=== PATIENT | male | born 1950 | race Caucasian/White ===

== ENCOUNTER 2017-03-25 12:16 | Emergency (ER) | payer MEDICARE, OTHER ==
[~2017-03-25 12:16] MED LIST: ADVIL LIQUI-GE200 MG PO; ALPRAZOLAM0.25 MG PO; AMBIEN10 MG PO; CENTRUM SILVER1 EAC3 PO; DURAGESIC25 MCG/PAT TD; FISH OIL CONCEN1 SG2 PO; FLOMAX PO; GOOD NEIGHBOR200 M3 PO; POTASSIUM CITR10 MEQ PO; ZESTORETIC 10-1 EACH PO; ZOCOR40 M1 PO
[2017-03-25 17:03] VITALS: BP 164/72
== END 2017-03-25 17:22 | disposition home or self-care (01) ==
LOC: ED 12:16
DX: R07.89 Other chest pain (principal); K21.9 Gastro-esophageal reflux disease without esophagitis

== ENCOUNTER → 2017-11-27 | Outpatient (CLI) | payer MEDICARE ==
[2017-11-27 09:43] LABS: ALBUMIN 4.1 g/dL (3.5-5.0); BUN/CREATININE RATIO 26.8 (6.0-26.0); CALCIUM 9.1 mg/dL (8.4-10.2); POTASSIUM 4.4 mmol/L (3.6-5.0); TOTAL BILIRUBIN 0.9 mg/dL (0.2-1.3); TOTAL PROTEIN 7.1 g/dL (6.3-8.2)
[2017-11-27 09:52] LABS: BASO # 0.1 (0.02-0.10); EOS # 0.3 (0.04-0.40); EOS % 3.3 % (0.0-4.0); HEMATOCRIT 46.6 % (42.0-52.0); LYMPH# 2.5 (1.50-4.00); MEAN CELL VOLUME 95 fl (78-100); MEAN CORPUSCULAR HEMOGLOBIN 33 pg (27-31); MEAN CORPUSCULAR HGB CONC 34 g/dL (33-37); MEAN PLATELET VOLUME 10.1 fl (7.4-10.4); MONO # 1.1 (0.20-0.80); NEU # 5.2 (1.40-6.50); PLATELET COUNT 269 K/mm3 (130-400); RED BLOOD COUNT 4.93 M/mm3 (4.20-5.60); RED CELL DISTRIBUTION WIDTH 14.8 % (11.5-14.5); WHITE BLOOD COUNT 9.2 K/mm3 (4.8-10.8)
[2017-11-27 23:42] LABS: TESTOSTERONE 611 ng/dL (221-716)
== END ==
LOC: LAB 09:08
PROVIDERS: Nurse Practitioner Family
DX: E78.2 Mixed hyperlipidemia (principal); Z12.5 Encounter for screening for malignant neoplasm of prostate; I10 Essential (primary) hypertension; N52.9 Male erectile dysfunction, unspecified; K40.90 Unilateral inguinal hernia, without obstruction or gangrene, not specified as recurrent

== ENCOUNTER → 2017-12-03 | Outpatient (CLI) | payer MEDICARE ==
[2017-12-04 13:29] LABS: TESTOSTERONE 745 ng/dL (221-716)
[2017-12-06 00:54] LABS: T3 TOTAL 132 ng/dL (87-178)
== END ==
LOC: LAB 08:15
PROVIDERS: Nurse Practitioner Family
DX: Z12.5 Encounter for screening for malignant neoplasm of prostate (principal); E78.2 Mixed hyperlipidemia; I10 Essential (primary) hypertension; N52.9 Male erectile dysfunction, unspecified; K40.90 Unilateral inguinal hernia, without obstruction or gangrene, not specified as recurrent; R79.89 Other specified abnormal findings of blood chemistry

== ENCOUNTER → 2019-10-21 | Outpatient (CLI) | payer MEDICARE ==
[2019-10-21 10:17] LABS: EOS # 0.1 (0.04-0.40); EOS % 2.1 % (0.0-4.0); HEMATOCRIT 43.9 % (42.0-52.0); HEMOGLOBIN 14.6 g/dL (13.5-18.0); LYMPH# 1.3 (1.50-4.00); MEAN CELL VOLUME 98 fl (78-100); MEAN CORPUSCULAR HEMOGLOBIN 33 pg (27-31); MEAN CORPUSCULAR HGB CONC 33 g/dL (33-37); MEAN PLATELET VOLUME 8.9 fl (7.4-10.4); MONO # 0.6 (0.20-0.80); NEU # 3.2 (1.40-6.50); PLATELET COUNT 211 K/mm3 (130-400); RED BLOOD COUNT 4.49 M/mm3 (4.20-5.60); RED CELL DISTRIBUTION WIDTH 12.9 % (11.5-14.5); WHITE BLOOD COUNT 5.3 K/mm3 (4.8-10.8)
[2019-10-21 10:26] LABS: ALBUMIN 4.4 g/dL (3.4-4.8)
[2019-10-21 10:27] LABS: POTASSIUM 4.3 mmol/L (3.5-5.1)
[2019-10-21 10:28] LABS: CALCIUM 9.5 mg/dL (8.3-10.5)
[2019-10-21 10:29] LABS: TOTAL PROTEIN 7.3 g/dL (6.2-8.1)
[2019-10-21 10:31] LABS: TOTAL BILIRUBIN 0.7 mg/dL (0.2-1.2)
== END ==
LOC: LAB 10:01
PROVIDERS: Physician Assistant
DX: C34.90 Malignant neoplasm of unspecified part of unspecified bronchus or lung (principal); J44.9 Chronic obstructive pulmonary disease, unspecified; H83.03 Labyrinthitis, bilateral

== ENCOUNTER 2019-10-30 11:57 | Emergency (ER) | payer MEDICARE ==
[~2019-10-30] VITALS: Ht 175.3 cm; Wt 69.1 kg
[2019-10-30 12:52] LABS: EOS # 0.1 (0.04-0.40); HEMATOCRIT 42.8 % (42.0-52.0); HEMOGLOBIN 14.5 g/dL (13.5-18.0); LYMPH# 1.6 (1.50-4.00); MEAN CELL VOLUME 96 fl (78-100); MEAN CORPUSCULAR HEMOGLOBIN 32 pg (27-31); MEAN CORPUSCULAR HGB CONC 34 g/dL (33-37); MEAN PLATELET VOLUME 9.3 fl (7.4-10.4); MONO # 0.7 (0.20-0.80); NEU # 3.8 (1.40-6.50); PLATELET COUNT 205 K/mm3 (130-400); RED BLOOD COUNT 4.48 M/mm3 (4.20-5.60); WHITE BLOOD COUNT 6.4 K/mm3 (4.8-10.8)
[2019-10-30 12:55] LABS: ALBUMIN 4.2 g/dL (3.4-4.8); POTASSIUM 3.8 mmol/L (3.5-5.1); SODIUM 141 mmol/L (136-145)
[2019-10-30 12:57] LABS: CALCIUM 9.5 mg/dL (8.3-10.5)
[2019-10-30 12:58] LABS: GLUCOSE 90 mg/dL (75-110); TOTAL PROTEIN 6.9 g/dL (6.2-8.1)
[2019-10-30 12:59] LABS: CARBON DIOXIDE 22 mmol/L (23-31)
[2019-10-30 13:00] LABS: TOTAL BILIRUBIN 0.6 mg/dL (0.2-1.2)
[2019-10-30 13:03] LABS: AST-SGOT 15 U/L (5-34)
[2019-10-30 13:04] LABS: ALT/SGPT 18 U/L (0-55)
[2019-10-30 13:12] LABS: TROPONIN-I < 0.03 ng/mL (<0.030)
[2019-10-30 13:16] LABS: URINE APPEARANCE CLEAR; URINE BILIRUBIN NEGATIVE (NEGATIVE); URINE BLOOD NEGATIVE (NEGATIVE); URINE COLOR YELLOW; URINE GLUCOSE NEGATIVE (NEGATIVE); URINE KETONE NEGATIVE (NEGATIVE); URINE LEUKOCYTE ESTERASE NEGATIVE (NEGATIVE); URINE NITRATE NEGATIVE (NEGATIVE); URINE PROTEIN(semi-quant) TRACE mg/dL (NEGATIVE); URINE UROBILINOGEN NORMAL (NORMAL); URINE WBC 0-1 /hpf (0-3)
[2019-10-30 13:26] LABS: D-DIMER 9.02 mg/L FEU (0.15-0.50)
[2019-10-30 15:04] LABS: LIPASE 15 U/L (8-78)
[2019-10-30 17:35] VITALS: BP 120/72
== END 2019-10-30 17:35 | disposition home or self-care (01) ==
LOC: ED 11:57
PROVIDERS: Nurse Practitioner Family; Nurse Practitioner Primary Care
DX: J44.9 Chronic obstructive pulmonary disease, unspecified (principal); I10 Essential (primary) hypertension; F17.210 Nicotine dependence, cigarettes, uncomplicated; Z85.118 Personal history of other malignant neoplasm of bronchus and lung; Z86.79 Personal history of other diseases of the circulatory system
CPT/HCPCS: Q9967

== ENCOUNTER → 2021-08-26 | Outpatient (CLI) | payer MEDICARE | LOC: LAB 08-25 13:13 | DX: C43.62 Malignant melanoma of left upper limb, including shoulder (principal); C34.12 Malignant neoplasm of upper lobe, left bronchus or lung; D46.A Refractory cytopenia with multilineage dysplasia ==

== ENCOUNTER → 2021-08-27 | Outpatient (CLI) | payer MEDICARE ==
[~2021-08-27] VITALS: Ht 175.3 cm; Wt 69.1 kg
[2021-08-27] VITALS (12 sets, daily range): BP systolic 119–145; BP diastolic 51–83
[2021-08-28 00:17] VITALS: BP 136/69
== END ==
LOC: AMSURD 19:09
DX: C43.62 Malignant melanoma of left upper limb, including shoulder (principal); C34.12 Malignant neoplasm of upper lobe, left bronchus or lung; D46.A Refractory cytopenia with multilineage dysplasia
CPT/HCPCS: J7050; P9040

== ENCOUNTER → 2021-10-07 | Outpatient (CLI) | payer MEDICARE ==
[~2021-10-07] VITALS: Ht 175.3 cm; Wt 69.1 kg
[2021-10-07] VITALS (9 sets, daily range): BP systolic 115–143; BP diastolic 57–101
== END ==
LOC: AMSURD 10-06 11:50
DX: C43.62 Malignant melanoma of left upper limb, including shoulder (principal); C34.12 Malignant neoplasm of upper lobe, left bronchus or lung; D46.A Refractory cytopenia with multilineage dysplasia
CPT/HCPCS: J7050

== ENCOUNTER → 2021-10-20 | Outpatient (CLI) | payer MEDICARE ==
[2021-10-20] VITALS (9 sets, daily range): BP systolic 113–129; BP diastolic 49–68
[~2021-10-20] VITALS: Ht 175.3 cm; Wt 69.1 kg
== END ==
LOC: AMSURD 16:19
DX: C43.62 Malignant melanoma of left upper limb, including shoulder (principal); C34.12 Malignant neoplasm of upper lobe, left bronchus or lung; D46.A Refractory cytopenia with multilineage dysplasia
CPT/HCPCS: J1644

== ENCOUNTER → 2021-10-21 | Outpatient (CLI) | payer MEDICARE ==
[~2021-10-21] VITALS: Ht 175.3 cm; Wt 69.1 kg
[2021-10-21 13:44] VITALS: BP 127/62
[2021-10-21 13:50] VITALS: BP 123/65
[2021-10-21 13:55] VITALS: BP 127/64
[2021-10-21 14:00] VITALS: BP 119/63
[2021-10-21 16:16] VITALS: BP 116/73
== END ==
LOC: AMSURD 12:52
DX: C43.62 Malignant melanoma of left upper limb, including shoulder (principal); C34.12 Malignant neoplasm of upper lobe, left bronchus or lung; D46.A Refractory cytopenia with multilineage dysplasia; D64.9 Anemia, unspecified
CPT/HCPCS: J1644; J7050

== ENCOUNTER → 2021-11-17 | Outpatient (CLI) | payer MEDICARE ==
[2021-11-17 16:52] LABS: HEMATOCRIT 23.3 % (42.0-52.0); HEMOGLOBIN 7.4 g/dL (13.5-18.0)
== END ==
LOC: LAB 16:38
PROVIDERS: Internal Medicine
DX: C43.62 Malignant melanoma of left upper limb, including shoulder (principal); C34.12 Malignant neoplasm of upper lobe, left bronchus or lung; D46.A Refractory cytopenia with multilineage dysplasia

== ENCOUNTER → 2021-11-18 | Outpatient (CLI) | payer MEDICARE ==
[2021-11-18] VITALS (10 sets, daily range): BP systolic 110–142; BP diastolic 60–91
[~2021-11-18] VITALS: Ht 175.3 cm; Wt 69.1 kg
== END ==
LOC: AMSURD 12:54
DX: C43.62 Malignant melanoma of left upper limb, including shoulder (principal); C34.12 Malignant neoplasm of upper lobe, left bronchus or lung; D46.A Refractory cytopenia with multilineage dysplasia
CPT/HCPCS: J7050

== ENCOUNTER 2022-04-09 10:39 | Inpatient (IN) | payer MEDICARE ==
[~2022-04-09] VITALS: Ht 175.3 cm; Wt 64.9 kg
[2022-04-09] MEDS ORDERED: NATURE'S BLEND500 M6 PO (11:40)
[2022-04-09] MEDS ORDERED: VITAMIN C500 MG PO (11:42)
[2022-04-09] MEDS ORDERED: GOOD NEIGHBOR325 MG PO (11:43)
[2022-04-09] MEDS ORDERED: MULTIPLE VITAMI1 TA5 PO (11:43)
[2022-04-09] MEDS ORDERED: UROXATRAL10 M1 PO (11:44)
[2022-04-09] MEDS ORDERED: SPIRIVA RE2.5 MCG/Ac IH (11:45)
[2022-04-09] MEDS ORDERED: ADVAIR DISKUS1 DS2 IH (11:46)
[2022-04-09] MEDS ORDERED: PYRIDIUM100 M1 PO (11:47)
[2022-04-09] MEDS ORDERED: NORCO 325 MG-51 TA1 PO (11:48)
[2022-04-09 12:19] VITALS: BP 103/57
[2022-04-09 19:16] VITALS: BP 112/66
--- NOTE | 2022-04-09 19:20 | NUR ---
Report received from Estefania COLLINS. Patient resting supine in bed with eyes closed. Awakens easily to verbal stimuli. A/O x4. Rates pain to R hip 3/10, "dull ache". Denies need for analgesic. Aquacell dressing CDI to hip. Hip with edema and bruising present. Discussed bowels. States had a small one but would like to wait until tomorrow to try anymore laxative. Assessment completed. Medications and pain control reviewed. Denies wants or needs at this time.
--- NOTE | 2022-04-10 00:06 | NUR ---
Sets off bed alarm. Noted to be standing at bedside when staff enters room. Assisted to BR. Gait very unsteady and patient somewhat confused. Had Ashley at HS. Small drops of blood noted in brief and in toilet after urinates. Will continue to monitor. Dressing to L arm CDI. Assisted back to bed. Bed alarm on. Call light in reach.
--- NOTE | 2022-04-10 02:39 | NUR ---
Sets off bed alarm. Up to BR. Had Large formed BM. Assisted back to bed. Gait remains unsteady and impulsive. Remains to confused to place and situation after having HS medications. No blood noted in stool or brief now. Continue to monitor.
--- NOTE | 2022-04-10 05:05 | NUR ---
Up to BR with 1 assist and walker. Gait more steady per [employer] at this time. Able to get feet back into bed on own. Less confused but still some confusion noted. States he takes Ambien at home "but not all the time, just when I can't sleep". Denies pain at this time. Bed alarm on. Call light in reach.
[2022-04-10 05:33] VITALS: BP 107/64
--- NOTE | 2022-04-10 06:57 | NUR ---
Report to Missy COLLINS.
--- NOTE | 2022-04-10 07:00 | NUR ---
Received report from MY Bird.
[2022-04-10 11:18] LABS: URINE APPEARANCE CLEAR; URINE BILIRUBIN 1+ (NEGATIVE); URINE COLOR DK YELLOW; URINE GLUCOSE NEGATIVE (NEGATIVE); URINE KETONE NEGATIVE (NEGATIVE); URINE PROTEIN(semi-quant) TRACE (NEGATIVE)
[2022-04-10 11:19] LABS: URINE BLOOD TRACE (NEGATIVE); URINE LEUKOCYTE ESTERASE TRACE (NEGATIVE); URINE MUCUS PRESENT (NOT PRESENT); URINE NITRATE NEGATIVE (NEGATIVE); URINE UROBILINOGEN NORMAL (NORMAL)
[2022-04-10 11:30] LABS: HEMATOCRIT 31.1 % (42.0-52.0); HEMOGLOBIN 10.4 g/dL (13.5-18.0); MEAN CELL VOLUME 103 fl (78-100); MEAN CORPUSCULAR HEMOGLOBIN 34 pg (27-31); MEAN CORPUSCULAR HGB CONC 33 g/dL (33-37); MEAN PLATELET VOLUME 11.2 fl (7.4-10.4); PLATELET COUNT 157 K/mm3 (130-400); RED BLOOD COUNT 3.03 M/mm3 (4.20-5.60); RED CELL DISTRIBUTION WIDTH 16.9 % (11.5-14.5); WHITE BLOOD COUNT 3.4 K/mm3 (4.8-10.8)
[2022-04-10 11:43] LABS: ALBUMIN 3.5 g/dL (3.4-4.8)
[2022-04-10 11:44] LABS: POTASSIUM 3.8 mmol/L (3.5-5.1)
[2022-04-10 11:46] LABS: TOTAL PROTEIN 5.6 g/dL (6.2-8.1)
[2022-04-10 11:48] LABS: TOTAL BILIRUBIN 0.8 mg/dL (0.2-1.2)
[2022-04-10 12:35] LABS: MONOCYTE 4 % (3-10); NEUTROPHILS 46 % (42-75)
[2022-04-10 12:37] LABS: POLYCHROMASIA 1+
[2022-04-10 12:48] LABS: LYMPHOCYTE 45 % (20-51)
[2022-04-10 12:49] LABS: OVALOCYTES 1+
[2022-04-10 17:04] VITALS: BP 115/56
--- NOTE | 2022-04-10 18:53 | NUR ---
Report given to KARINA Love.
--- NOTE | 2022-04-10 19:00 | NUR ---
Report received from Missy COLLINS.
--- NOTE | 2022-04-10 20:30 | NUR ---
Patient rests in bed. HS meds reviewed and given. Requests 1 norco for right hip pain and given. Alert and oriented x 4. Pleasant.
--- NOTE | 2022-04-10 23:30 | NUR ---
Patient resting awake in bed watching TV. States he's not hurting but unable to sleep. Reviewed that he received ambien last night and became disoriented/ impulsive. Patient states "oh I don't want that" and declines ambien.
--- NOTE | 2022-04-11 05:40 | NUR ---
Patient awake. States he probably slept for 1 1/2 hours this noc. Explained will report to oncoming shift to see if he'd benefit from a different sleep aid.
[2022-04-11 05:55] VITALS: BP 126/73
[2022-04-11 15:37] VITALS: BP 104/66
--- NOTE | 2022-04-11 16:29 | NUR ---
Pt complaining about back pain and he usually uses a firm matress at home. Replaced matress with [facility]
--- NOTE | 2022-04-11 16:39 | NUR ---
PATIENT DID NOT SLEEP WELL LAST NIGHT AND REPORTS THAT HE WOULD LIKE TO TRY SOMETHING DIFFERENT FROM AMBIEN. PROVIDER IS UPDATED AND PATIENT IS AWARE A NEW MED MAY BE PRESCRIBED TONIGHT. PATIENT HAS HAD DISCOMFORT WITH HIS BACK ALL DAY AND TAKING NORCO FOR PAIN. NEW MATTRESS ALSO APPLIED FOR PATIENT COMFORT AND WOUND CONTROL. PATIENT'S HAS VISITED MOST OF THE DAY.
--- NOTE | 2022-04-11 18:56 | NUR ---
Report given to KARINA Love
--- NOTE | 2022-04-11 19:00 | NUR ---
Report received from Anna COLLINS.
--- NOTE | 2022-04-11 20:30 | NUR ---
Patient resting in bed and sits self up on side of bed to take meds. Trazadone handout reviewed along with indications and possible side effects and given. HS meds reviewed and given. States will hold off on pain med at this time. Alert and oriented x 4.
--- NOTE | 2022-04-12 02:00 | NUR ---
Patient continues resting with eyes closed. Respirations with ease.
--- NOTE | 2022-04-12 02:30 | NUR ---
Patient sitting up in recliner. States "didn't want to bother anyone". Reminded to call for assist for safety. Assisted with walker back to bed. Offered pain med and norco given. States "pain not bad" 4/10 on pain scale. Bed alarm on.
--- NOTE | 2022-04-12 02:50 | NUR ---
Patient reports he slept from 2200 until 0200 this am.
[2022-04-12 06:01] VITALS: BP 108/67
--- NOTE | 2022-04-12 08:23 | NUR ---
A&Ox4, RA, c/o pain in R leg, rating pain a 3 out of 4 on a numeric pains scale. Refusing PRN at this time. Sitting up in chair eating breakfast and watching TV. Reports he slept well last night. Eager to work with therapy today. Swallowed pills whole with water. Chair in locked position. Encouraged NOT to turn off alarms before getting out of bed and chair. Chair in locked position. Chair alarm on. Call light within reach.
--- NOTE | 2022-04-12 15:12 | NUR ---
states that William is in a better mood today and that she will not be able to care for him over the weekend. He will be staying at least through Sunday or Sunday of next week.
[2022-04-12 17:13] VITALS: BP 158/109
[2022-04-12 20:35] VITALS: BP 118/64
--- NOTE | 2022-04-12 23:15 | NUR ---
Report received from Luanne COLLINS. Patient resting with eyes closed. No signs of pain or distress. Bed alarm on. Call light in reach.
--- NOTE | 2022-04-13 05:44 | NUR ---
Rested well all shift. Denies need for analgesic that is offered at this time. Denies wants or needs. Vs obtained.
[2022-04-13 05:50] VITALS: BP 110/68
--- NOTE | 2022-04-13 06:51 | NUR ---
Report to Sarah COLLINS.
--- NOTE | 2022-04-13 09:30 | NUR ---
A&Ox4, RA, c/o pain a 5 out of 10 on a numeric pain scale in R hip. PRN given at this time. Sitting up in chair watching TV. Reports he slept well last night. Eager to go outside once the rain stops. Chair in locked position. Call light within reach.
[2022-04-13 16:43] VITALS: BP 115/71
--- NOTE | 2022-04-13 19:07 | NUR ---
Report received from Sarah COLLINS. Patient resting supine in bed watching TV. A/O x4. Rates pain to R hip 02/26. "I just had a pain pill not long ago.". Dressing to R hip CDI. Assessment completed. Denies wants or needs. Bed alarm on. Call light in reach.
--- NOTE | 2022-04-13 21:20 | NUR ---
Ambulated in hallway with WRAPPER DIPPER. Gait steady and tolerated well.
[2022-04-14 05:28] VITALS: BP 105/66
--- NOTE | 2022-04-14 05:37 | NUR ---
Rested well all night. Awakened by staff for vital signs. Offers no complaints. VSS. Denies wants or needs. Bed alarm on. Call light in reach.
--- NOTE | 2022-04-14 07:00 | NUR ---
REPORT RECEIVED FROM MY FORTUNE.
--- NOTE | 2022-04-14 07:05 | NUR ---
[facility]
--- NOTE | 2022-04-14 08:45 | NUR ---
PATIENT PLEASENT AND COOPERATIVE WITH CARES. UP TO CHIAR FOR MORNING MEAL. A&OX4; STATES PAIN 7/10 IN RIGHT HIP; HAS SCATTERED BRUSING TO BILAT UPPER EXT. PATIENT STATES RESTED WELL THROUGH THE NIGHT. OFFERS NO OTHER NEEDS OR COMPLAINTS AT THIS TIME. CHAIR LOCKED, ALARM ON, CALL LIGHT WITHIN REACH.
--- NOTE | 2022-04-14 09:15 | NUR ---
PER ORDER AQUACEL DRESSING TO R HIP REMOVED. INCISION EDGES WELL APPROXIMATED, NO REDDNESS OR IRRITATION NOTED. NO DRAINAGE FROM INCISION NOTED. INCISION LEFT OPEN TO AIR. PATIENT STATED NO DISCOMFORT WITH DRESSING REMOVAL, TOLERATED PROCEDURE WELL.
--- NOTE | 2022-04-14 09:50 | NUR ---
DRESSING CHANGED TO SKIN TEAR ON LEFT ARM. CLEANSED WITH SOAP AND WATER SKIN PUT BACK INTO PLACE, STERI STRIP X2 APPLIED, COVERED WITH NON STICK GAUZE AND KERLEX. PATIENT TOLERATED PROCEDURE WELL.
--- NOTE | 2022-04-14 10:20 | NUR ---
PATIENT AMBULATORY WITH STANDBY ASSIST TO SIT OUTSIDE WITH . PATIENT STATED MINIMAL DISCOMFORT WITH AMBULATION.
--- NOTE | 2022-04-14 13:00 | NUR ---
REPORT GIVEN TO KARINA BILLY
[2022-04-14 17:41] VITALS: BP 106/66
--- NOTE | 2022-04-14 19:09 | NUR ---
Report received from Renetta COLLINS. Patient resting supine in bed watching TV. A/O x4. States he had a good day, "a very busy day". Rates pain to RLE 2. Incision to R hip W/A and SUMANTH. Continues to have some bruising/swelling but no drainage noted. Assessment completed. Denies wants or needs at this time.
--- NOTE | 2022-04-15 05:09 | NUR ---
Rested well. Denies need for analgesic this AM. Up to BR x1 in the night. Set off bed alarm, did not use call light. Staff in room to assist.
[2022-04-15 05:10] VITALS: BP 103/64
--- NOTE | 2022-04-15 06:55 | NUR ---
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
--- NOTE | 2022-04-15 07:00 | NUR ---
REPORT RECEIVED FROM MY FORTUNE. PATIENT UP TO CHAIR. DENIES NEEDS OR COMPLAINTS AT THIS TIME. CHAIR ALARM ON, CALL LIGHT WITHIN REACH.
--- NOTE | 2022-04-15 08:00 | NUR ---
PATIENT PLESENT AND COOPERATIVE WITH CARE, UP TO CHIAR FOR MORNING MEAL. A&OX4, STATES PAIN IS 6/10 "ALWAYS HURTS IN THE MORNING". PRN ANALGESIC GIVEN AT THIS TIME. PATIENT STATES RESTED WELL THROUGH OUT THE NIGHT. OFFERS NO NEEDS OR COMPLAINTS AT THIS TIME. CHAIR ALARM ON, CALL LIGHT WITHIN REACH.
--- NOTE | 2022-04-15 10:30 | NUR ---
PATIENT AMBULATED OUT TO [facility] WITH STAFF STANDBY ASSIST, ACCOMPANIED. PATIENT DENIES PAIN OR DISCOMFORT WITH AMBULATION.
--- NOTE | 2022-04-15 15:00 | NUR ---
PATIENT AMBULATED TO SIT OUTSIDE WITH . STAFF STANDBY ASSIST. PATIENT DENIED PAIN OR DISCOMFORT AT THIS TIME.
[2022-04-15 17:13] VITALS: BP 108/68
--- NOTE | 2022-04-15 18:30 | NUR ---
REPORT GIVEN TO MY FORTUNE.
--- NOTE | 2022-04-15 19:11 | NUR ---
Report received from Teena PEPE. Resting in bed. A/O x4. Pain level 4/10 to R hip. Utilizing ice and PO analgesic PRN. R hip incision W/A, MANAGER SOFTWARE. Assessment completed. Bed alarm on. Call light in reach.
[2022-04-16 05:12] VITALS: BP 112/69
--- NOTE | 2022-04-16 05:30 | NUR ---
Rested well all night. Denies need for analgesic this am.
--- NOTE | 2022-04-16 06:56 | NUR ---
Report to Sarah COLLINS.
[2022-04-16 17:48] VITALS: BP 110/66
--- NOTE | 2022-04-16 19:00 | NUR ---
Report received from Sarah COLLINS.
--- NOTE | 2022-04-16 20:30 | NUR ---
Patient rests in bed watching TV. Alert and oriented x4. HS meds along with norco for right hip achyness reviewed and given.
--- NOTE | 2022-04-17 01:38 | NUR ---
Patient rests with eyes closed. Respirations with ease.
--- NOTE | 2022-04-17 05:08 | NUR ---
Rests on right side with eyes closed. Respirations with ease.
[2022-04-17 06:10] VITALS: BP 112/65
--- NOTE | 2022-04-17 07:00 | NUR ---
Received report from KARINA Love.
[2022-04-17 07:27] LABS: EOS # 0.12 K/mm3 (0.04-0.40); HEMATOCRIT 31.1 % (42.0-52.0); HEMOGLOBIN 10.1 g/dL (13.5-18.0); LYMPH# 1.56 K/mm3 (1.50-4.00); MEAN CELL VOLUME 108 fl (78-100); MEAN CORPUSCULAR HEMOGLOBIN 35 pg (27-31); MEAN CORPUSCULAR HGB CONC 33 g/dL (33-37); MEAN PLATELET VOLUME 11.2 fl (7.4-10.4); MONO # 0.28 K/mm3 (0.20-0.80); NEU # 1.97 K/mm3 (1.40-6.50); PLATELET COUNT 354 K/mm3 (130-400); RED BLOOD COUNT 2.89 M/mm3 (4.20-5.60); RED CELL DISTRIBUTION WIDTH 18.1 % (11.5-14.5)
--- NOTE | 2022-04-17 07:30 | NUR ---
Patient A&Ox4. Denies pain. States he slept well after second pain medication was given. Denies need for pain medication this AM. Assessment completed. Right hip incision SIMONIZER edges well approximated. No edema noted. Needs met. Fall precautions in place.
[2022-04-17 07:39] LABS: POTASSIUM 4.1 mmol/L (3.5-5.1)
[2022-04-17 07:40] LABS: CALCIUM 8.8 mg/dL (8.3-10.5)
[2022-04-17 16:31] VITALS: BP 102/67
--- NOTE | 2022-04-17 18:51 | NUR ---
Report given to KARINA Love.
--- NOTE | 2022-04-17 19:00 | NUR ---
Report received from Missy COLLINS.
--- NOTE | 2022-04-17 20:30 | NUR ---
Patient rests in bed watching TV. HS meds reviewed and given along with norco for right hip pain and ice pack applied. Alert and oriented x 4. Pleasant.
[2022-04-18 05:59] VITALS: BP 117/69
--- NOTE | 2022-04-18 06:01 | NUR ---
Patient awakened for vitals. Reports he slept well this noc. "Didn't even hear the storm".
[2022-04-18 17:24] VITALS: BP 109/71
--- NOTE | 2022-04-18 19:00 | NUR ---
Report received from Virginia COLLINS.
--- NOTE | 2022-04-18 20:00 | NUR ---
Patient resting in bed. Alert and oriented x 4. Reports right hip pain /10 and norco 1 tab along with HS meds reviewed and given. Declines snack and ice pack at this time. Reports his stools are getting loose from taking miralax but states last BM was yesterday. Reviewed hold miralax daily if loose stools to prevent diarrhea and to take PRN.
--- NOTE | 2022-04-19 05:40 | NUR ---
Patient reports he slept well this noc.
[2022-04-19 06:00] VITALS: BP 116/71
[2022-04-19] MEDS ORDERED: NORCO 325 MG-51 TA1 PO (09:00)
--- NOTE | 2022-04-19 09:28 | NUR ---
Contacted [facility]. Spoke with Emiliano. She advised they will call [facility] to schedule a visit tomorrow (04/20/22)
--- NOTE | 2022-04-19 09:45 | NUR ---
Discharge instructions reviewed with patient and . All questions answered. Leaves ambualtory with staff and all belongings
[2022-04-19] MEDS ORDERED: DESYREL50 MG PO (09:49)
== END 2022-04-19 09:45 | disposition home health service (06) | DRG 560 ==
LOC: MED/SURG 10:39
PROVIDERS: Nurse Practitioner; ADMIT Family Medicine
DX: S72.001D Fracture of unspecified part of neck of right femur, subsequent encounter for closed fracture with routine healing (principal); C34.90 Malignant neoplasm of unspecified part of unspecified bronchus or lung; J44.9 Chronic obstructive pulmonary disease, unspecified; D46.9 Myelodysplastic syndrome, unspecified; I10 Essential (primary) hypertension; N40.0 Benign prostatic hyperplasia without lower urinary tract symptoms; D64.9 Anemia, unspecified; E78.5 Hyperlipidemia, unspecified; R53.81 Other malaise; W18.30XD Fall on same level, unspecified, subsequent encounter; Z79.82 Long term (current) use of aspirin; Z79.891 Long term (current) use of opiate analgesic

== ENCOUNTER → 2022-04-27 | Outpatient (CLI) | payer MEDICARE ==
[~2022-04-27] MED LIST changes: +ADVAIR DISKUS1 DS2 IH; +DESYREL50 MG PO; +GOOD NEIGHBOR325 MG PO; +MULTIPLE VITAMI1 TA5 PO; +NATURE'S BLEND500 M6 PO; +NORCO 325 MG-51 TA1 PO; +PYRIDIUM100 M1 PO; +SPIRIVA RE2.5 MCG/Ac IH; +UROXATRAL10 M1 PO; +VITAMIN C500 MG PO
[2022-04-27 09:52] LABS: BASO # 0.05 K/mm3 (0.02-0.10); EOS # 0.24 K/mm3 (0.04-0.40); EOS % 7.2 % (0.0-4.0); HEMATOCRIT 33.5 % (42.0-52.0); HEMOGLOBIN 10.8 g/dL (13.5-18.0); LYMPH# 1.09 K/mm3 (1.50-4.00); MEAN CELL VOLUME 108 fl (78-100); MEAN CORPUSCULAR HEMOGLOBIN 35 pg (27-31); MEAN CORPUSCULAR HGB CONC 32 g/dL (33-37); MEAN PLATELET VOLUME 11.1 fl (7.4-10.4); MONO # 0.26 K/mm3 (0.20-0.80); NEU # 1.68 K/mm3 (1.40-6.50); PLATELET COUNT 148 K/mm3 (130-400); RED BLOOD COUNT 3.09 M/mm3 (4.20-5.60); RED CELL DISTRIBUTION WIDTH 17.5 % (11.5-14.5); WHITE BLOOD COUNT 3.3 K/mm3 (4.8-10.8)
[2022-04-27 10:07] LABS: ALBUMIN 3.8 g/dL (3.4-4.8); POTASSIUM 4.3 mmol/L (3.5-5.1)
[2022-04-27 10:09] LABS: CALCIUM 9.4 mg/dL (8.3-10.5)
[2022-04-27 10:10] LABS: TOTAL PROTEIN 6.4 g/dL (6.2-8.1)
[2022-04-27 10:12] LABS: TOTAL BILIRUBIN 0.3 mg/dL (0.2-1.2)
== END ==
LOC: LAB 09:29
PROVIDERS: Internal Medicine
DX: D46.A Refractory cytopenia with multilineage dysplasia (principal)

== ENCOUNTER → 2022-05-01 | Outpatient (CLI) | payer MEDICARE ==
[2022-05-01 17:23] LABS: URINE APPEARANCE CLEAR; URINE BILIRUBIN NEGATIVE (NEGATIVE); URINE BLOOD NEGATIVE (NEGATIVE); URINE COLOR YELLOW; URINE GLUCOSE NEGATIVE (NEGATIVE); URINE KETONE NEGATIVE (NEGATIVE); URINE LEUKOCYTE ESTERASE NEGATIVE (NEGATIVE); URINE MUCUS PRESENT (NOT PRESENT); URINE NITRATE NEGATIVE (NEGATIVE); URINE PROTEIN(semi-quant) TRACE (NEGATIVE); URINE UROBILINOGEN NORMAL (NORMAL); URINE WBC 0-1 /hpf (0-3)
== END ==
LOC: LAB 16:05
PROVIDERS: Family Medicine
DX: R35.0 Frequency of micturition (principal)

== ENCOUNTER 2022-05-11 10:00 | Outpatient (RCR) | payer MEDICARE | END 2022-05-18 | disposition home or self-care (01) | LOC: PT | DX: M25.551 Pain in right hip (principal) ==

== ENCOUNTER 2022-05-23 03:34 | Emergency (ER) | payer MEDICARE ==
[~2022-05-23] VITALS: Ht 175.3 cm; Wt 62.6 kg
[2022-05-23] MEDS ORDERED: WELLBUTRIN XL300 M1 PO (04:07)
[2022-05-23] MEDS ORDERED: FAMOTIDINE20 MG PO (04:08)
[2022-05-23 05:20] LABS: HEMATOCRIT 30.3 % (42.0-52.0); HEMOGLOBIN 10.3 g/dL (13.5-18.0); MEAN CELL VOLUME 107 fl (78-100); MEAN CORPUSCULAR HEMOGLOBIN 36 pg (27-31); MEAN CORPUSCULAR HGB CONC 34 g/dL (33-37); MEAN PLATELET VOLUME 12.5 fl (7.4-10.4); PLATELET COUNT 165 K/mm3 (130-400); RED BLOOD COUNT 2.83 M/mm3 (4.20-5.60); RED CELL DISTRIBUTION WIDTH 15.8 % (11.5-14.5)
[2022-05-23 05:24] LABS: ALBUMIN 3.7 g/dL (3.4-4.8); POTASSIUM 3.6 mmol/L (3.5-5.1)
[2022-05-23 05:25] LABS: CALCIUM 8.7 mg/dL (8.3-10.5)
[2022-05-23 05:27] LABS: TOTAL PROTEIN 6.3 g/dL (6.2-8.1); WHITE BLOOD COUNT 1.8 K/mm3 (4.8-10.8)
[2022-05-23 05:28] LABS: TOTAL BILIRUBIN 0.3 mg/dL (0.2-1.2)
[2022-05-23 05:49] LABS: URINE APPEARANCE HAZY; URINE BILIRUBIN NEGATIVE (NEGATIVE); URINE COLOR YELLOW; URINE GLUCOSE NEGATIVE (NEGATIVE); URINE KETONE NEGATIVE (NEGATIVE); URINE NITRATE NEGATIVE (NEGATIVE); URINE PROTEIN(semi-quant) TRACE (NEGATIVE); URINE UROBILINOGEN NORMAL (NORMAL)
[2022-05-23 05:50] LABS: URINE BLOOD TRACE (NEGATIVE); URINE LEUKOCYTE ESTERASE 1+ (NEGATIVE)
[2022-05-23 06:01] LABS: LYMPHOCYTE 70 % (20-51); MONOCYTE 10 % (3-10); NEUTROPHILS 18 % (42-75)
[2022-05-23] MEDS ORDERED: ZOFRAN ODT4 MG PO (06:40)
[2022-05-23] MEDS ORDERED: PROTONIX TR40 M1 PO (06:40)
[2022-05-23] MEDS ORDERED: CARAFATE 1GM1 G PO (06:40)
[2022-05-23] MEDS ORDERED: MACROBID 100 M100 MG PO (06:40)
[2022-05-23 06:45] VITALS: BP 126/71
== END 2022-05-23 06:45 | disposition home or self-care (01) ==
LOC: ED 03:34
PROVIDERS: Physician Assistant
DX: N39.0 Urinary tract infection, site not specified (principal); K21.9 Gastro-esophageal reflux disease without esophagitis; F17.210 Nicotine dependence, cigarettes, uncomplicated
CPT/HCPCS: J2405; J7030

== ENCOUNTER 2022-05-24 12:59 | Outpatient (RCR) | payer MEDICARE ==
[~2022-05-24 12:59] MED LIST changes: +CARAFATE 1GM1 G PO; +FAMOTIDINE20 MG PO; +MACROBID 100 M100 MG PO; +PROTONIX TR40 M1 PO; +WELLBUTRIN XL300 M1 PO; +ZOFRAN ODT4 MG PO
== END 2022-06-18 | disposition home or self-care (01) ==
LOC: PT
DX: M25.551 Pain in right hip (principal)

== ENCOUNTER → 2022-05-31 | Outpatient (CLI) | payer MEDICARE ==
[2022-05-31 13:55] LABS: HEMATOCRIT 31.2 % (42.0-52.0); HEMOGLOBIN 10.1 g/dL (13.5-18.0); MEAN CELL VOLUME 112 fl (78-100); MEAN CORPUSCULAR HEMOGLOBIN 36 pg (27-31); MEAN CORPUSCULAR HGB CONC 32 g/dL (33-37); MEAN PLATELET VOLUME 11.7 fl (7.4-10.4); PLATELET COUNT 220 K/mm3 (130-400); RED BLOOD COUNT 2.79 M/mm3 (4.20-5.60); RED CELL DISTRIBUTION WIDTH 16.4 % (11.5-14.5); WHITE BLOOD COUNT 2.3 K/mm3 (4.8-10.8)
[2022-05-31 14:05] LABS: ALBUMIN 3.8 g/dL (3.4-4.8); POTASSIUM 4.4 mmol/L (3.5-5.1)
[2022-05-31 14:06] LABS: CALCIUM 9.1 mg/dL (8.3-10.5)
[2022-05-31 14:07] LABS: TOTAL PROTEIN 6.4 g/dL (6.2-8.1)
[2022-05-31 14:09] LABS: TOTAL BILIRUBIN 0.3 mg/dL (0.2-1.2)
[2022-05-31 14:18] LABS: BAND 1 % (0-10); MONOCYTE 5 % (3-10); NEUTROPHILS 35 % (42-75)
[2022-05-31 14:19] LABS: LYMPHOCYTE 55 % (20-51)
== END ==
LOC: LAB 13:40
PROVIDERS: Internal Medicine
DX: D46.A Refractory cytopenia with multilineage dysplasia (principal)

== ENCOUNTER → 2022-06-08 | Outpatient (CLI) | payer MEDICARE ==
[2022-06-08 09:55] LABS: HEMATOCRIT 28.2 % (42.0-52.0); HEMOGLOBIN 9.2 g/dL (13.5-18.0); MEAN CELL VOLUME 112 fl (78-100); MEAN CORPUSCULAR HEMOGLOBIN 36 pg (27-31); MEAN CORPUSCULAR HGB CONC 33 g/dL (33-37); MEAN PLATELET VOLUME 12.3 fl (7.4-10.4); PLATELET COUNT 184 K/mm3 (130-400); RED BLOOD COUNT 2.53 M/mm3 (4.20-5.60); RED CELL DISTRIBUTION WIDTH 16.5 % (11.5-14.5)
[2022-06-08 10:12] LABS: ALBUMIN 3.8 g/dL (3.4-4.8)
[2022-06-08 10:13] LABS: POTASSIUM 3.7 mmol/L (3.5-5.1)
[2022-06-08 10:14] LABS: CALCIUM 9.1 mg/dL (8.3-10.5)
[2022-06-08 10:15] LABS: TOTAL PROTEIN 6.2 g/dL (6.2-8.1)
[2022-06-08 10:17] LABS: TOTAL BILIRUBIN 0.4 mg/dL (0.2-1.2)
[2022-06-08 10:34] LABS: LYMPHOCYTE 60 % (20-51); MONOCYTE 7 % (3-10); NEUTROPHILS 33 % (42-75)
[2022-06-08 10:35] LABS: OVALOCYTES 2+
== END ==
LOC: LAB 09:28
PROVIDERS: Internal Medicine
DX: D46.A Refractory cytopenia with multilineage dysplasia (principal)

== ENCOUNTER → 2022-06-14 | Outpatient (CLI) | payer MEDICARE ==
[2022-06-14 15:00] LABS: HEMATOCRIT 31.2 % (42.0-52.0); HEMOGLOBIN 10.2 g/dL (13.5-18.0); MEAN CELL VOLUME 114 fl (78-100); MEAN CORPUSCULAR HEMOGLOBIN 37 pg (27-31); MEAN CORPUSCULAR HGB CONC 33 g/dL (33-37); MEAN PLATELET VOLUME 12.3 fl (7.4-10.4); PLATELET COUNT 120 K/mm3 (130-400); RED BLOOD COUNT 2.74 M/mm3 (4.20-5.60); RED CELL DISTRIBUTION WIDTH 16.1 % (11.5-14.5); WHITE BLOOD COUNT 2.2 K/mm3 (4.8-10.8)
[2022-06-14 15:15] LABS: ALBUMIN 3.9 g/dL (3.4-4.8)
[2022-06-14 15:17] LABS: POTASSIUM 4.8 mmol/L (3.5-5.1); TOTAL PROTEIN 6.6 g/dL (6.2-8.1)
[2022-06-14 15:19] LABS: TOTAL BILIRUBIN 0.3 mg/dL (0.2-1.2)
[2022-06-14 15:59] LABS: HYPOCHROMIA 1+; LYMPHOCYTE 58 % (20-51); NEUTROPHILS 35 % (42-75)
== END ==
LOC: LAB 14:49
PROVIDERS: Internal Medicine
DX: D46.A Refractory cytopenia with multilineage dysplasia (principal)

== ENCOUNTER 2022-06-19 08:02 | Outpatient (RCR) | payer MEDICARE | END 2022-07-19 | disposition home or self-care (01) | LOC: PT | DX: M25.551 Pain in right hip (principal) ==

== ENCOUNTER → 2022-06-28 | Outpatient (CLI) | payer MEDICARE ==
[2022-06-28 13:31] LABS: HEMATOCRIT 24.7 % (42.0-52.0); HEMOGLOBIN 8.2 g/dL (13.5-18.0); MEAN CELL VOLUME 111 fl (78-100); MEAN CORPUSCULAR HEMOGLOBIN 37 pg (27-31); MEAN CORPUSCULAR HGB CONC 33 g/dL (33-37); MEAN PLATELET VOLUME 12.6 fl (7.4-10.4); PLATELET COUNT 127 K/mm3 (130-400); RED CELL DISTRIBUTION WIDTH 15.9 % (11.5-14.5)
[2022-06-28 13:39] LABS: ALBUMIN 3.8 g/dL (3.4-4.8); POTASSIUM 4.2 mmol/L (3.5-5.1)
[2022-06-28 13:42] LABS: TOTAL PROTEIN 6.5 g/dL (6.2-8.1)
[2022-06-28 13:43] LABS: TOTAL BILIRUBIN 0.3 mg/dL (0.2-1.2)
[2022-06-28 13:44] LABS: RED BLOOD COUNT 2.22 M/mm3 (4.20-5.60); WHITE BLOOD COUNT 1.1 K/mm3 (4.8-10.8)
[2022-06-28 14:40] LABS: LYMPHOCYTE 78 % (20-51); MONOCYTE 7 % (3-10); NEUTROPHILS 14 % (42-75); NUCLEATED RED BLOOD CELL 3 (0-6)
[2022-06-28 14:42] LABS: OVALOCYTES 1+
== END ==
LOC: LAB 13:19
PROVIDERS: Internal Medicine
DX: D46.A Refractory cytopenia with multilineage dysplasia (principal)

== ENCOUNTER → 2022-07-05 | Outpatient (CLI) | payer MEDICARE ==
[2022-07-05 10:58] LABS: HEMATOCRIT 23.6 % (42.0-52.0); HEMOGLOBIN 7.8 g/dL (13.5-18.0); MEAN CELL VOLUME 113 fl (78-100); MEAN CORPUSCULAR HEMOGLOBIN 37 pg (27-31); MEAN CORPUSCULAR HGB CONC 33 g/dL (33-37); MEAN PLATELET VOLUME 12.2 fl (7.4-10.4); PLATELET COUNT 129 K/mm3 (130-400); RED CELL DISTRIBUTION WIDTH 16.1 % (11.5-14.5)
[2022-07-05 11:01] LABS: RED BLOOD COUNT 2.09 M/mm3 (4.20-5.60); WHITE BLOOD COUNT 1.2 K/mm3 (4.8-10.8)
[2022-07-05 11:10] LABS: ALBUMIN 3.9 g/dL (3.4-4.8)
[2022-07-05 11:12] LABS: CALCIUM 9.5 mg/dL (8.3-10.5)
[2022-07-05 11:13] LABS: TOTAL PROTEIN 6.5 g/dL (6.2-8.1)
[2022-07-05 11:15] LABS: TOTAL BILIRUBIN 0.5 mg/dL (0.2-1.2)
[2022-07-05 11:48] LABS: LYMPHOCYTE 46 % (20-51); MONOCYTE 8 % (3-10); NEUTROPHILS 44 % (42-75); NUCLEATED RED BLOOD CELL 2 (0-6); POLYCHROMASIA 1+; SCHISTOCYTES 1+; TEAR DROP CELLS 1+
[2022-07-05 11:49] LABS: OVALOCYTES 1+
== END ==
LOC: LAB 10:24
PROVIDERS: Internal Medicine
DX: D46.A Refractory cytopenia with multilineage dysplasia (principal)

== ENCOUNTER → 2022-07-15 | Outpatient (CLI) | payer MEDICARE | LOC: LAB 08:53 | DX: C43.62 Malignant melanoma of left upper limb, including shoulder (principal) ==

== ENCOUNTER → 2022-07-27 | Outpatient (CLI) | payer MEDICARE ==
[2022-07-27 14:39] LABS: HEMATOCRIT 21.9 % (42.0-52.0); HEMOGLOBIN 7.3 g/dL (13.5-18.0); MEAN CELL VOLUME 102 fl (78-100); MEAN CORPUSCULAR HEMOGLOBIN 34 pg (27-31); MEAN CORPUSCULAR HGB CONC 33 g/dL (33-37); MEAN PLATELET VOLUME 12.2 fl (7.4-10.4); PLATELET COUNT 74 K/mm3 (130-400)
[2022-07-27 14:51] LABS: RED BLOOD COUNT 2.14 M/mm3 (4.20-5.60); WHITE BLOOD COUNT 1.4 K/mm3 (4.8-10.8)
[2022-07-27 19:10] LABS: LYMPHOCYTE 84 % (20-51); MONOCYTE 1 % (3-10); NEUTROPHILS 15 % (42-75)
[2022-07-27 19:11] LABS: HYPOCHROMIA 1+
== END ==
LOC: LAB 14:14
PROVIDERS: Internal Medicine
DX: C43.62 Malignant melanoma of left upper limb, including shoulder (principal)

== ENCOUNTER → 2022-07-28 | Outpatient (CLI) | payer MEDICARE ==
[2022-07-28] VITALS (10 sets, daily range): BP systolic 89–142; BP diastolic 53–79
[~2022-07-28] VITALS: Ht 175.3 cm; Wt 59.0 kg
== END ==
LOC: AMSURD 14:24
DX: C34.12 Malignant neoplasm of upper lobe, left bronchus or lung (principal)
CPT/HCPCS: J1644; J7050

== ENCOUNTER → 2022-09-06 | Outpatient (CLI) | payer MEDICARE ==
[2022-09-06 11:12] LABS: HEMATOCRIT 26.5 % (42.0-52.0); HEMOGLOBIN 8.9 g/dL (13.5-18.0); MEAN CELL VOLUME 94 fl (78-100); MEAN CORPUSCULAR HEMOGLOBIN 31 pg (27-31); MEAN CORPUSCULAR HGB CONC 34 g/dL (33-37); MEAN PLATELET VOLUME 12.5 fl (7.4-10.4); RED BLOOD COUNT 2.83 M/mm3 (4.20-5.60); RED CELL DISTRIBUTION WIDTH 14.4 % (11.5-14.5)
[2022-09-06 11:17] LABS: PLATELET COUNT 28 K/mm3 (130-400); WHITE BLOOD COUNT 1.1 K/mm3 (4.8-10.8)
[2022-09-06 11:24] LABS: ALBUMIN 3.6 g/dL (3.4-4.8); POTASSIUM 4.4 mmol/L (3.5-5.1)
[2022-09-06 11:26] LABS: CALCIUM 9.2 mg/dL (8.3-10.5)
[2022-09-06 11:27] LABS: TOTAL PROTEIN 6.5 g/dL (6.2-8.1)
[2022-09-06 11:29] LABS: TOTAL BILIRUBIN 0.8 mg/dL (0.2-1.2)
[2022-09-06 12:33] LABS: BAND 2 % (0-10); LYMPHOCYTE 80 % (20-51); METAMYELOCYTE 2 % (0-0); MONOCYTE 6 % (3-10); NEUTROPHILS 8 % (42-75)
[2022-09-06 12:34] LABS: OVALOCYTES 1+
[2022-09-06 12:35] LABS: TEAR DROP CELLS 1+
== END ==
LOC: LAB 10:49
PROVIDERS: Internal Medicine
DX: D46.A Refractory cytopenia with multilineage dysplasia (principal)

== ENCOUNTER → 2022-09-13 | Outpatient (CLI) | payer MEDICARE ==
[2022-09-13 15:48] LABS: HEMATOCRIT 21.4 % (42.0-52.0); HEMOGLOBIN 7.2 g/dL (13.5-18.0)
== END ==
LOC: LAB 15:29
PROVIDERS: Internal Medicine
DX: C43.62 Malignant melanoma of left upper limb, including shoulder (principal)

== ENCOUNTER → 2022-09-15 | Outpatient (CLI) | payer MEDICARE ==
[~2022-09-15] VITALS: Ht 175.3 cm; Wt 60.7 kg
[2022-09-15 08:52] VITALS: BP 123/67
[2022-09-15 09:40] VITALS: BP 102/66
[2022-09-15 10:40] VITALS: BP 109/63
[2022-09-15 11:33] VITALS: BP 107/68
--- NOTE | 2022-09-15 11:34 | NUR ---
Patient resting quietly in bed. Eyes closed, A&Ox4, no c/o pain or discomfort. Blood transfusing via infusa-port. VSS. Bed in lowest and locked position. Call light within reach.
[2022-09-15 12:09] VITALS: BP 124/69
[2022-09-15 15:11] VITALS: BP 123/71
== END ==
LOC: AMSURD 08:48
DX: C43.62 Malignant melanoma of left upper limb, including shoulder (principal)
CPT/HCPCS: J7050

== ENCOUNTER → 2022-09-27 | Outpatient (CLI) | payer MEDICARE | LOC: LAB 17:23 → AMSURD 17:23 | DX: C34.12 Malignant neoplasm of upper lobe, left bronchus or lung (principal) ==

== ENCOUNTER → 2022-09-27 | Outpatient (CLI) | payer MEDICARE ==
[2022-09-27 14:16] LABS: HEMATOCRIT 23.3 % (42.0-52.0); HEMOGLOBIN 7.6 g/dL (13.5-18.0); MEAN CELL VOLUME 93 fl (78-100); MEAN CORPUSCULAR HEMOGLOBIN 30 pg (27-31); MEAN CORPUSCULAR HGB CONC 33 g/dL (33-37); MEAN PLATELET VOLUME 12.8 fl (7.4-10.4); RED BLOOD COUNT 2.51 M/mm3 (4.20-5.60); RED CELL DISTRIBUTION WIDTH 13.4 % (11.5-14.5)
[2022-09-27 14:21] LABS: ALBUMIN 3.3 g/dL (3.4-4.8); POTASSIUM 4.2 mmol/L (3.5-5.1)
[2022-09-27 14:22] LABS: CALCIUM 8.4 mg/dL (8.3-10.5)
[2022-09-27 14:25] LABS: PLATELET COUNT 20 K/mm3 (130-400); TOTAL BILIRUBIN 0.2 mg/dL (0.2-1.2); WHITE BLOOD COUNT 0.9 K/mm3 (4.8-10.8)
[2022-09-27 14:42] LABS: LYMPHOCYTE 84 % (20-51); MONOCYTE 2 % (3-10); NEUTROPHILS 14 % (42-75)
== END ==
LOC: LAB 13:57
PROVIDERS: Internal Medicine
DX: D46.A Refractory cytopenia with multilineage dysplasia (principal)

== ENCOUNTER → 2022-09-28 | Outpatient (CLI) | payer MEDICARE ==
[~2022-09-28] VITALS: Ht 175.3 cm; Wt 60.7 kg
[2022-09-28 14:34] VITALS: BP 104/83
[2022-09-28 14:35] VITALS: BP 104/83
[2022-09-28 14:50] VITALS: BP 110/80
[2022-09-28 16:16] VITALS: BP 121/80
[2022-09-28 17:51] VITALS: BP 98/65
== END ==
LOC: AMSURD 14:14
DX: C34.90 Malignant neoplasm of unspecified part of unspecified bronchus or lung (principal)
CPT/HCPCS: J7050

== ENCOUNTER → 2022-10-19 | Outpatient (CLI) | payer MEDICARE ==
[2022-10-19 14:22] LABS: HEMATOCRIT 26.9 % (42.0-52.0); HEMOGLOBIN 9.1 g/dL (13.5-18.0); MEAN CELL VOLUME 90 fl (78-100); MEAN CORPUSCULAR HEMOGLOBIN 31 pg (27-31); MEAN CORPUSCULAR HGB CONC 34 g/dL (33-37); RED BLOOD COUNT 2.98 M/mm3 (4.20-5.60); RED CELL DISTRIBUTION WIDTH 13.5 % (11.5-14.5)
[2022-10-19 14:32] LABS: ALBUMIN 3.4 g/dL (3.4-4.8); POTASSIUM 4.5 mmol/L (3.5-5.1)
[2022-10-19 14:33] LABS: CALCIUM 8.6 mg/dL (8.3-10.5)
[2022-10-19 14:34] LABS: PLATELET COUNT 36 K/mm3 (130-400)
[2022-10-19 14:35] LABS: TOTAL PROTEIN 6.2 g/dL (6.2-8.1)
[2022-10-19 14:36] LABS: TOTAL BILIRUBIN 0.5 mg/dL (0.2-1.2)
[2022-10-19 15:52] LABS: LYMPHOCYTE 67 % (20-51); MONOCYTE 5 % (3-10); MYELOCYTE 1 % (0-0); NEUTROPHILS 21 % (42-75)
[2022-10-19 15:55] LABS: HYPOCHROMIA 1+
== END | disposition still patient (30) ==
LOC: LAB 14:10
PROVIDERS: Internal Medicine
DX: D46.A Refractory cytopenia with multilineage dysplasia (principal)

== ENCOUNTER → 2022-10-25 | Outpatient (CLI) | payer MEDICARE ==
[2022-10-25 10:57] LABS: HEMATOCRIT 25.4 % (42.0-52.0); HEMOGLOBIN 8.4 g/dL (13.5-18.0); MEAN CELL VOLUME 92 fl (78-100); MEAN CORPUSCULAR HEMOGLOBIN 30 pg (27-31); MEAN CORPUSCULAR HGB CONC 33 g/dL (33-37); MEAN PLATELET VOLUME 12.1 fl (7.4-10.4); RED BLOOD COUNT 2.76 M/mm3 (4.20-5.60); RED CELL DISTRIBUTION WIDTH 13.5 % (11.5-14.5)
[2022-10-25 11:03] LABS: ALBUMIN 3.4 g/dL (3.4-4.8); POTASSIUM 3.6 mmol/L (3.5-5.1)
[2022-10-25 11:04] LABS: CALCIUM 8.7 mg/dL (8.3-10.5)
[2022-10-25 11:05] LABS: TOTAL PROTEIN 6.2 g/dL (6.2-8.1)
[2022-10-25 11:07] LABS: TOTAL BILIRUBIN 0.4 mg/dL (0.2-1.2)
[2022-10-25 11:09] LABS: PLATELET COUNT 27 K/mm3 (130-400); WHITE BLOOD COUNT 1.2 K/mm3 (4.8-10.8)
[2022-10-25 13:14] LABS: BAND 1 % (0-10); LYMPHOCYTE 65 % (20-51); MONOCYTE 5 % (3-10); NEUTROPHILS 22 % (42-75)
[2022-10-25 13:15] LABS: OVALOCYTES 1+
== END ==
LOC: LAB 10:42
PROVIDERS: Internal Medicine
DX: D46.A Refractory cytopenia with multilineage dysplasia (principal)